=== PATIENT | female | born 1965 | race African-American/Black ===

== ENCOUNTER 2017-07-09 08:09 | Outpatient (CLI) | payer BC ==
--- NOTE | 2017-07-09 10:08 | ULT ---
RENAL SONOGRAM: DATE: 07/09/17. HISTORY: Renal cyst. FINDINGS: The right kidney demonstrates a normal sonographic appearance without evidence of a renal mass, zandra l calculus, or hydronephrosis. The right kidney measures 11.3 cm x 4.6 cm. The left kidney measures 15.7 cm x 7.7 cm. In the superior pole of the right kidney, there is a cir cumscribed anechoic cystic structure measuring 5.5 cm, which demonstrates sonographic characteristic s most compatible with a cyst. There is a hypodense cystic lesion on superior pole left kidney on a CT examination in 2007 measuring 2.6 cm which also demonstrated characteristics on that exam sugges tive of a cyst. Findings are likely related to interval enlargement of this cyst when compared to t he prior study. No additional mass or renal calculus is seen on the left and there is no hydronephr osis. Urinary bladder has a normal sonographic appearance with a urinary bladder volume of 396.3 mL. Limited visualized right hepatic lobe demonstrates increased echogenicity suggesting diffuse fatty i nfiltration. IMPRESSION: 1. Interval enlargement of a superior pole left renal cyst when compared to a CT scan examination i n 2007. Kidneys otherwise have a normal sonographic appearance bilaterally, and there is no hydrone phrosis. 2. Normal-appearing urinary bladder. 3. Fatty infiltration of the visualized liver. POS: [facility]
== END 2017-07-09 08:10 | disposition home or self-care (01) ==
LOC: ULT 08:09
PROVIDERS: ATTEND Urology
DX: N28.1 Cyst of kidney, acquired (principal)
CPT/HCPCS: 76770

== ENCOUNTER 2017-07-16 09:10 | Outpatient (CLI) | payer OTHER ==
--- NOTE | 2017-07-16 11:12 | MRI ---
MRI OF THE LEFT SHOULDER WITHOUT CONTRAST: Date: 07/16/17 INDICATION: Concern for rotator cuff with left shoulder pain. FINDINGS: There is moderate supraspinatus tendinosis. No full thickness tear is evident. The infraspinatus, te res minor and subscapularis intact. Biceps tendon is located. The biceps anchor appears within mitra l limits. The inferior glenohumeral labral ligamentous complex appears within normal limits. No para labral cyst is evident. Glenohumeral reticular surface appears within normal limits. There is mild A C joint hypertrophy causing mild encroachment on the subjacent supraspinatus. No muscular atrophy is present. There is a Type II acromion. No os acromiale is evident. No enlarged lymph nodes are prese nt. IMPRESSION: 1. Moderate supraspinatus tendinosis. 2. Mild AC joint osteoarthrosis with mild encroachment. POS: [facility]
== END 2017-07-16 09:11 | disposition home or self-care (01) ==
LOC: MRI 09:10
PROVIDERS: ATTEND Family Medicine
DX: M75.100 Unspecified rotator cuff tear or rupture of unspecified shoulder, not specified as traumatic (principal); M19.012 Primary osteoarthritis, left shoulder; M75.82 Other shoulder lesions, left shoulder

== ENCOUNTER 2017-12-24 08:21 | Outpatient (CLI) | payer OTHER | END 2017-12-24 08:22 | disposition home or self-care (01) | DX: M75.111 Incomplete rotator cuff tear or rupture of right shoulder, not specified as traumatic (principal); M75.82 Other shoulder lesions, left shoulder ==

== ENCOUNTER 2018-11-21 09:54 | Outpatient (CLI) | payer BC ==
--- NOTE | 2018-11-21 12:59 | MRI ---
CERVICAL SPINE MRI NONCONTRAST: Indication: Cervical radicular pain (M54.12). Comparison: 08-01-16 FINDINGS: Craniocervical junction is intact. Imaged posterior fossa contents are unremarkable. Incidental note of a partially empty sella, incompletely imaged. The caliber of contour and signal intensity of the c ervical spinal cord is normal. No evidence of compression deformity, subluxation, or acute marrow raymond ma. At the C1-2 and C2-3 level there is no significant central canal or foraminal stenosis. C3-4: There is a mild, right asymmetric disc osteophyte without significant central canal stenosis. T here is minimal left foraminal narrowing due to hypertrophy. The left foramen is patent. C4-5: There is a right asymmetric disc osteophyte along with uncinate process hypertrophy producing m ild right foraminal narrowing. There is slight effacement of the ventral thecal sac. Left foramen is patent. C5-6: There is mild right asymmetric disc bulge with slight effacement of the ventral and right perin eural space and minimal right foraminal narrowing. No high grade central canal or left foraminal sten osis. C6-7: No significant central canal or neural foraminal stenosis. C7-T1: No significant central canal or neural foraminal stenosis. IMPRESSION: 1. Minimal degenerative changes cervical spine as discussed above. 2. Incidental note of a partially empty sella. If there are symptoms of headache, along with the mayra ent's diagnosed neck pain, consider dedicated Brain MRI as follow up, in order to exclude entity such as idiopathic intracranial hypertension which may be a source for pain . POS: [facility]
== END 2018-11-21 09:55 | disposition home or self-care (01) ==
LOC: BICMRI 09:54
PROVIDERS: ATTEND Nurse Practitioner Family
DX: M47.22 Other spondylosis with radiculopathy, cervical region (principal)
CPT/HCPCS: 72141

== ENCOUNTER 2018-12-04 10:55 | Outpatient (CLI) | payer BC | END 2018-12-04 10:56 | disposition home or self-care (01) | LOC: BICMAMMO 10:55 | PROVIDERS: ATTEND Family Medicine | DX: Z12.31 Encounter for screening mammogram for malignant neoplasm of breast (principal); Z80.3 Family history of malignant neoplasm of breast | CPT/HCPCS: 77063; 77067 ==

== ENCOUNTER 2019-03-18 12:49 | Outpatient (CLI) | payer BC ==
--- NOTE | 2019-03-18 13:31 | ULT ---
Exam: Bilateral renal ultrasound HISTORY: Renal cyst COMPARISON: 07/09/2017 FINDINGS: Right kidney: Normal cortical echotexture. No hydronephrosis. Right kidney measurements: 4.6 x 4.8 x 11.5 cm. Left kidney: Normal cortical echotexture. No hydronephrosis. Exophytic anechoic focus emanating from the upper pole measuring 5.8 x 5.3 x 6.2 cm. Left kidney measurements 6.1 x 7.7 x 15.7 cm. Urinary bladder: Normal mucosa. IMPRESSION: 1. No hydronephrosis. 2. Exophytic cyst emanating from the upper pole of the left kidney. Previously, cyst measured 5.6 x 5 .5 x 4.9 cm.
== END 2019-03-18 12:50 | disposition home or self-care (01) ==
LOC: BICULT 12:49
PROVIDERS: ATTEND Urology
DX: N28.1 Cyst of kidney, acquired (principal)
CPT/HCPCS: 36415; 76770; 80048; 81001

== ENCOUNTER 2020-04-07 10:26 | Outpatient (CLI) | payer BC ==
--- NOTE | 2020-04-07 11:27 | MMO ---
Bilateral MAMMO Bilat Screen [facility]. CLINICAL HISTORY: Patient is 54 years old and is seen for screening. The patient has no family history of breast cancer. The patient has no personal history of cancer. VIEWS: The views performed were: bilateral craniocaudal with tomosynthesis and bilateral mediolateral oblique with tomosynthesis. FILMS COMPARED: The present examination has been compared to prior imaging studies performed at [facility] on 12/04/2018, and at [facility] on 06/06/2017. This study has been interpreted with the assistance of computer-aided detection. MAMMOGRAM FINDINGS: There are scattered fibroglandular densities. There are no suspicious masses, suspicious calcifications, or new areas of architectural distortion. IMPRESSION: THERE IS NO MAMMOGRAPHIC EVIDENCE OF MALIGNANCY. A ROUTINE FOLLOW-UP MAMMOGRAM IN 1 YEAR IS RECOMMENDED. THE RESULTS OF THIS EXAM WERE SENT TO THE PATIENT. ACR BI-RADS Category 1 - Negative MAMMOGRAPHY NOTE: 1. A negative mammogram report should not delay a biopsy if a dominant of clinically suspicious mass is present. 2. Approximately 10% to 15% of breast cancers are not detected by mammography. 3. Adenosis and dense breasts may obscure an underlying neoplasm. Reported by: ERNESTINA ORELLANA MD Electonically Signed: [id number]
== END 2020-04-07 10:27 | disposition home or self-care (01) ==
LOC: BICMAMMO 10:26
PROVIDERS: ATTEND Family Medicine
DX: Z12.31 Encounter for screening mammogram for malignant neoplasm of breast (principal)
CPT/HCPCS: 77063; 77067

== ENCOUNTER 2020-12-14 12:21 | Outpatient (CLI) | payer BC | END 2020-12-14 12:22 | disposition home or self-care (01) | LOC: BICRAD 12:21 | PROVIDERS: ATTEND Internal Medicine Critical Care Medicine | DX: R06.00 Dyspnea, unspecified (principal) | CPT/HCPCS: 71046 ==

== ENCOUNTER 2021-06-17 12:23 | Outpatient (CLI) | payer BC | END 2021-06-17 12:24 | disposition home or self-care (01) | LOC: BICMAMMO 12:23 | PROVIDERS: ATTEND Family Medicine | DX: Z12.31 Encounter for screening mammogram for malignant neoplasm of breast (principal); Z80.3 Family history of malignant neoplasm of breast | CPT/HCPCS: 77063; 77067 ==

== ENCOUNTER 2022-04-12 09:02 | Outpatient (CLI) | payer BC | END 2022-04-12 09:03 | disposition home or self-care (01) | LOC: CT 09:02 | PROVIDERS: ATTEND Urology | DX: N28.1 Cyst of kidney, acquired (principal) | CPT/HCPCS: 74176 ==

== ENCOUNTER 2022-07-03 15:54 | Outpatient (CLI) | payer BC | END 2022-07-03 15:55 | disposition home or self-care (01) | LOC: BICMAMMO 15:54 | PROVIDERS: ATTEND Family Medicine | DX: Z12.31 Encounter for screening mammogram for malignant neoplasm of breast (principal) | CPT/HCPCS: 77063; 77067 ==

== ENCOUNTER 2022-11-28 11:59 | Outpatient (CLI) | payer BC | END 2022-11-28 12:00 | disposition home or self-care (01) | LOC: ULT 11:59 | PROVIDERS: ATTEND Urology | DX: N28.1 Cyst of kidney, acquired (principal) | CPT/HCPCS: 76770 ==

== ENCOUNTER 2023-10-25 10:34 | Outpatient (CLI) | payer BC | END 2023-10-25 10:35 | disposition home or self-care (01) | LOC: BICMAMMO 10:34 | PROVIDERS: ATTEND Family Medicine | DX: Z12.31 Encounter for screening mammogram for malignant neoplasm of breast (principal); Z80.3 Family history of malignant neoplasm of breast | CPT/HCPCS: 77063; 77067 ==

== ENCOUNTER 2023-11-28 12:59 | Outpatient (CLI) | payer BC ==
[~2023-11-28 12:59] MED LIST: Iopamidol 370 76% 100 ML VIAL ONE
== END 2023-11-28 13:00 | disposition home or self-care (01) ==
LOC: CT 12:59
PROVIDERS: ATTEND Urology
DX: N28.1 Cyst of kidney, acquired (principal); R35.0 Frequency of micturition; Z90.710 Acquired absence of both cervix and uterus; Z98.84 Bariatric surgery status
CPT/HCPCS: 74178; Q9967